=== PATIENT | female | born 1985 | race Native Hawaiian/Other Pacific Islander ===

== ENCOUNTER 2022-03-25 04:02 | Emergency (ER) | payer BC ==
[~2022-03-25] VITALS: Ht 167.7 cm; Wt 66.0 kg
[~2022-03-25 04:02] MED LIST: HYDR-3583 PO
--- NOTE | 2022-03-25 04:42 | ED Fall/Injury ---
General Chief Complaint: Laceration Stated Complaint: FALL,HEAD LAC Nursing Triage Note: TO ED VIA POV AND AMBULATORY TO ROOM 5. PT STATES SHE CAN SPEAK YI AND DOES NOT NEED A ENTOMOLOGY PROFESSOR. PER PT SHE TRIPPED AND HIT HEAD ON STEP, DENIES LOC. APPROX 2CM LAC NOTED TO RIGHT SIDE OF FOREHEAD. PT STATES SHE HAS BEEN "DRINKING A LITTLE" TONIGHT". Source: patient Exam Limitations: intoxication History of Present Illness Date Seen by Provider: Mar 25, 2022 Time Seen by Provider: 04:30 Initial Comments 36-year-old female presents to the emergency department today for cut on her forehead. She was walking at home and tripped hitting her head on the stairs. She states she has been drinking couple drinks heavily every day. She has not had a tetanus shot in the last 5 years. No other injuries outside of the laceration to her anterior forehead. She did not lose consciousness. No nausea or vomiting. She is not on blood thinning medications. He is intoxicated but alert, oriented Allergies and Home Medications Allergies Coded Allergies: aspirin (Verified Allergy, Mild, 10/17/11) Patient Home Medication List Home Medication List Reviewed: Yes Hydrocodone Bit/Acetaminophen (Lortab 5 Mg) 1 Tab Tab, 1-2 EA PO Q4HR PRN, (Reported) Entered as Reported by: KARYN PINA on 10/19/11 0820 Review of Systems Review of Systems Constitutional: no symptoms reported Eyes: No Symptoms Reported Ears, Nose, Mouth, Throat: no symptoms reported Respiratory: no symptoms reported Cardiovascular: no symptoms reported Gastrointestinal: no symptoms reported Genitourinary: no symptoms reported Musculoskeletal: no symptoms reported Skin: other (Laceration to her forehead) Psychiatric/Neurological: No Symptoms Reported Past [place]-Ebrmfi-Xjgzhs Hx Patient Social History Tobacco Use?: No Substance use?: No Alcohol Use?: Yes Alcohol Frequency: Once in a while Seasonal Allergies Seasonal Allergies: No Past Medical History Appendectomy Reproductive Disorders: No Family Medical History Reviewed Nursing Family Hx No Pertinent Family Hx Physical Exam Vital Signs Vital Signs - First Documented 03/25/22 04:20 Temp 36.8 Pulse 100 Resp 16 B/P (MAP) 152/109 (123) Pulse Ox 98 O2 Delivery Room Air Capillary Refill : Less Than 3 Seconds Height, Weight, BMI Height: 5'3" Weight: 145lbs. oz. 65.318368gy; 23.00 BMI Method:Stated General Appearance: WD/WN, no apparent distress HEENT: PERRL/EOMI, normal ENT inspection, TMs normal, pharynx normal Neck: non-tender, full range of motion, supple, normal inspection Cardiovascular: regular rate, rhythm, no edema, no gallop, no JVD, no murmur Respiratory: chest non-tender, lungs clear, normal breath sounds, no respiratory distress, no accessory muscle use Gastrointestinal: normal bowel sounds, non tender, soft, no organomegaly Back: normal inspection, no CVA tenderness, no vertebral tenderness Extremities: normal range of motion, non-tender, normal inspection, no pedal edema, no calf tenderness, normal capillary refill Neurologic/Psychiatric: alert, normal mood/affect, oriented x 3 Skin: normal color, warm/dry, other (5 cm laceration anterior forehead.) Lymphatic: no adenopathy Procedures/Interventions Wound Location: Face Wound Length (cm): 5 Wound's Depth, Shape: sub Q Wound Explored: clean Irrigated w/ Saline (ccs): 500 Anesthesia: Lidocaine w/ Epi Volume Anesthetic (ccs): 3 Suture: Prolene Suture Size: 6-0 Number of Sutures: 6 Layer Closure?: 1 Number Deep Layer Sutures: 0 Sterile Dressing Applied?: Yes Progress/Results/Core Measures Results/Orders My Orders Orders - CONSUELO TAYLOR DO Ct Head Wo (03/25/22 04:41) Vital Signs/I&O 03/25/22 04:20 Temp 36.8 Pulse 100 Resp 16 B/P (MAP) 152/109 (123) Pulse Ox 98 O2 Delivery Room Air Blood Pressure Mean: 123 Departure Communication (Admissions) Patient is hemodynamically stable. She does arrive with a family member. Laceration repair with sutures. CT scan of her head is obtained due to intoxication however she was alert and oriented. This is negative. Tetanus shot is updated. No other injuries. Discharged in stable condition with supportive care. Impression Primary Impression: Forehead laceration Qualified Codes: S01.81XA - Laceration without foreign body of other part of head, initial encounter Disposition: HOME, SELF-CARE Condition: Stable Departure-Patient Inst. Referrals: NO,LOCAL PHYSICIAN (PCP/Family) Primary Care Physician Patient Instructions: Laceration Repair With Stitches (DC) Add. Discharge Instructions: Have your stitches removed in 5-7 days. You may have this done here or at your primary doctor's office. Return to the emergency department for any redness that is spreading, drainage that looks like pus or if your symptoms change in any way concerning to you. Use ibuprofen and Tylenol as needed for pain or headaches. All discharge instructions reviewed with patient and/or family. Voiced understanding. CONSUELO TAYLOR DO Mar 25, 2022 04:42
[2022-03-25] MEDS ORDERED: TETANUS,DIPTH,PERTUSS P/F (BOOSTRIX) 0.5 ML VIAL IM ONE (04:45)
[2022-03-25 06:07] VITALS: BP 138/89
--- NOTE | 2022-03-25 06:40 | Diagnostic Imaging Report ---
PROCEDURE: CT head without contrast. TECHNIQUE: Multiple contiguous axial images were obtained through the brain without the use of intravenous contrast. Auto Exposure Controls were utilized during the CT exam to meet ALARA standards for radiation dose reduction. INDICATION: Trauma. Closed head injury. Intoxication. COMPARISON: None. FINDINGS: No intracranial hemorrhage, mass effect, hydrocephalus or extra-axial fluid collections. No CT evidence for territorial infarction. Small scalp contusion overlying the right frontal bone. No fractures. Mucosal thickening in ethmoid and maxillary sinuses. Mastoids are clear. IMPRESSION: 1. No acute intracranial CT findings. 2. Small scalp contusion overlying the right frontal bone. No fractures. 3. Mucosal thickening in the maxillary and ethmoid sinuses. No significant change from preliminary interpretation. Dictated by: Dictated on workstation # [id number]
== END 2022-03-25 06:07 | disposition home or self-care (01) ==
LOC: EDUNIT# 04:02 → ER 04:09
DX: S01.81XA Laceration without foreign body of other part of head, initial encounter (principal); Z88.6 Allergy status to analgesic agent; W01.198A Fall on same level from slipping, tripping and stumbling with subsequent striking against other object, initial encounter; Y92.009 Unspecified place in unspecified non-institutional (private) residence as the place of occurrence of the external cause; Y93.01 Activity, walking, marching and hiking
CPT/HCPCS: 12011; 70450; 90715